=== PATIENT | male | born 1985 | race Caucasian/White ===

== ENCOUNTER 2019-10-27 16:08 | Emergency (ER) | payer SELFPAY ==
[~2019-10-27] VITALS: Ht 172.7 cm; Wt 97.6 kg
[2019-10-27 16:12] VITALS: BP 146/79
[2019-10-27] MEDS ORDERED: LIDOCAINE 1%/EPI 1:100,000 20 ML VIAL. IJ ONE (16:30)
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
== END 2019-10-27 17:00 | disposition left against medical advice (07) ==
LOC: ER 16:08
DX: S41.012A Laceration without foreign body of left shoulder, initial encounter (principal); M54.2 Cervicalgia; Z88.2 Allergy status to sulfonamides; Y00.XXXA Assault by blunt object, initial encounter; Y93.89 Activity, other specified; Y92.89 Other specified places as the place of occurrence of the external cause; Y99.8 Other external cause status
CPT/HCPCS: 12002; 70450; 72125; 73030; 99285-25

== ENCOUNTER 2020-09-12 18:00 | Emergency (ER) | payer SELFPAY ==
[~2020-09-12] VITALS: Ht 172.7 cm; Wt 100.0 kg
--- NOTE | 2020-09-12 19:11 | RAD ---
Exam: Chest one view INDICATION: OD, cough TECHNIQUE: Frontal view of the chest Comparisons: None FINDINGS: The cardiomediastinal silhouette and pulmonary vessels are within normal limits. The lung and pleural spaces are clear. IMPRESSION: No acute cardiopulmonary process. Electronically signed by: Gopi Chery MD (09/12/2020 7:09 PM) JENNY
--- NOTE | 2020-09-12 19:47 | PHYS DOC ---
Past History Past Medical History: Anxiety Past Surgical History: Tonsillectomy Alcohol Use: Occasionally Social History Narrative: FENTANYL Adult General Chief Complaint Chief Complaint: OVERDOSE HPI HPI Patient is a 35-year-old male who presents with opioid overdose. States he injected some fentanyl at home, and overdid it and passed out. States that the people that were there with him gave him an intramuscular injection of Narcan and called EMS. EMS stated they gave him intranasal fentanyl on arrival and he did have a pulse and was breathing at the time. States that he did wake up shortly after that. Patient states that he did this accidentally and denies any suicidal ideations or hallucinations. States that he was feeling well and would like to go home now. Review of Systems Review of Systems Review of systems otherwise unremarkable except noted in HPI Allergies Allergies Allergies Coded Allergies Type Severity Reaction Last Updated Verified Sulfa (Sulfonamide Antibiotics) Allergy Unknown 09/12/20 Yes Physical Exam Physical Exam Constitutional: Well developed, well nourished, no acute distress, non-toxic appearance. [] HENT: Normocephalic, atraumatic, bilateral external ears normal, oropharynx moist, no oral exudates, nose normal. [] Eyes: PERRLA, EOMI, conjunctiva normal, no discharge. [] Neck: Normal range of motion, no tenderness, supple, no stridor. [] Cardiovascular:Heart rate regular rhythm, no murmur [] Lungs & Thorax: Bilateral breath sounds clear to auscultation [] Abdomen: soft, no tenderness, no masses, no pulsatile masses. [] Skin: Warm, dry, no erythema, no rash. [] Back: No tenderness, Extremities: No tenderness, no cyanosis, no clubbing, ROM intact, no edema. [] Neurologic: Alert and oriented X 3, normal motor function, normal sensory function, able to sit, stand and walk without issue no focal deficits noted. [] Psychologic: Affect normal, judgment abnormal, mood normal. [] Current Patient Data Vital Signs Vital Signs Date Time Temp Pulse Resp B/P (MAP) Pulse Ox O2 Delivery O2 Flow Rate FiO2 09/12/20 18:34 96 09/12/20 18:30 106 18 09/12/20 18:01 98.3 170/103 (125) Room Air EKG EKG [] Radiology/Procedures Radiology/Procedures [] Heart Score C/O Chest Pain: No Risk Factors: Risk Factors: DM, Current or recent (<one month) smoker, HTN, HLP, family hi story of CAD, obesity. Risk Scores: Risk Factors: DM, Current or recent (<one month) smoker, HTN, HLP, family history of CAD, obesity. Course & Med Decision Making Course & Med Decision Making Patient is a 35-year-old male who presents after accidentally overdosing on injection fentanyl Vital signs notable for tachycardia and hypertension. Physical exam noted above. Patient alert, oriented, pleasant and cooperative. Able to take p.o. liquid and food in the emergency department. Observed in the emergency department for 2 hours without issue. Patient stated he was feeling well and was ready to be discharged home and called family. Discussed ceasing opioid use due to the obvious risks. Advised to follow-up with primary care physician in the morning to update on ED visit. Gave strict return precautions to the ED. Patient grateful, verbalized understanding and agreed with plan of discharge. [] Dragon Disclaimer Dragon Disclaimer This electronic medical record was generated, in whole or in part, using a voice recognition dictation system. Departure Departure: Impression: Primary Impression: Opioid overdose Disposition: HOME / SELF CARE / HOMELESS Condition: GOOD Referrals: PCP,NO (PCP) CHRISTINE KAPOOR MD Patient Instructions: Narcotic Overdose Additional Instructions: Please read all of the attached information very carefully. As discussed, please cease using any medications that are not prescribed to you due to the obvious risk we discussed. Please call your primary care physician first thing in the morning to update on your ED visit and set up a follow-up visit. You are given resources as well for local [facility] clinics/primary care physicians and other providers that can help you with ceasing opioid use. Please come back to the emergency department with new or concerning symptoms as discussed. ADELA ENGLISH MD Sep 12, 2020 19:47
[2020-09-12 21:00] VITALS: BP 148/70
== END 2020-09-12 21:20 | disposition home or self-care (01) ==
LOC: ER 18:00
DX: T40.2X1A Poisoning by other opioids, accidental (unintentional), initial encounter (principal); F41.9 Anxiety disorder, unspecified; Z88.2 Allergy status to sulfonamides; Y92.89 Other specified places as the place of occurrence of the external cause
CPT/HCPCS: 71045; 99285

== ENCOUNTER 2020-10-10 14:43 | Emergency (ER) | payer SELFPAY ==
[~2020-10-10] VITALS: Ht 177.8 cm; Wt 100.2 kg
[2020-10-10 15:35] LABS: BASO # 0.1 x10^3/uL (0.0-0.2); BASO % 0 % (0-3); EOS # 0.2 x10^3/uL (0.0-0.7); EOS % 1 % (0-3); HEMATOCRIT 34.7 % (39.0-53.0); HEMOGLOBIN 11.8 g/dL (13.0-17.5); LYMPH # 0.7 x10^3/uL (1.0-4.8); LYMPH % 2 % (24-48); MEAN CORPUSCULAR HEMOGLOBIN 30 pg (25-35); MEAN CORPUSCULAR HGB CONC 34 g/dL (31-37); MEAN CORPUSCULAR VOLUME 88 fL (79-100); MONO # 2.4 x10^3/uL (0.0-1.1); MONO % 7 % (0-9); NEUT % 91 % (31-73); PLATELET COUNT 30 x10^3/uL (140-400); RED BLOOD COUNT 3.96 x10^6/uL (4.30-5.70); RED CELL DISTRIBUTION WIDTH 14.1 % (11.5-14.5); WHITE BLOOD COUNT 36.4 x10^3/uL (4.0-11.0)
--- NOTE | 2020-10-10 15:44 | RAD ---
EXAM: Chest, single view. HISTORY: Shortness of breath. COMPARISON: 09/12/2020 FINDINGS: A frontal view of the chest obtained. There is diffuse mixed interstitial and alveolar infi ltrate. There are suspected trace pleural effusions. There is no pneumothorax. The heart is normal in size. IMPRESSION: Diffuse mixed interstitial and alveolar infiltrate. Follow-up to confirm resolution. Electronically signed by: Alena Ward MD (10/10/2020 3:42 PM) [id number]
[2020-10-10 15:47] LABS: BGAS PH 7.44 (7.35-7.46)
[2020-10-10 16:06] LABS: ALBUMIN 1.5 g/dL (3.4-5.0); ALBUMIN/GLOBULIN RATIO 0.3 (1.0-1.7); CALCIUM 7.6 mg/dL (8.5-10.1); CREATININE 4.5 mg/dL (0.7-1.3); TOTAL BILIRUBIN 12.2 mg/dL (0.2-1.0); TOTAL PROTEIN 5.9 g/dL (6.4-8.2)
[2020-10-10 16:25] LABS: C REACTIVE PROTEIN 239.3 mg/L (0-3.3)
--- NOTE | 2020-10-10 16:25 | EKG ---
[address] [address] Test Date: 2020-10-10 Test Time: 15:21:56 Pat Name: GULSHAN HINKLE Department: Room: Gender: M [employer] Instructor: ALLI : 1985 Requested By: AUBREY BARTON Order Number: [id number] Reading MD: Measurements Intervals Bath Rate: 115 P: -64 TX: 114 QRS: -5 QRSD: 90 T: 33 QT: 310 QTc: 431 Interpretive Statements SINUS TACHYCARDIA LEFT ATRIAL ABNORMALITY LEFTWARD AXIS ABNORMAL ECG RI6.02 No previous ECG available for comparison
--- NOTE | 2020-10-10 17:35 | PHYS DOC ---
Past History Past Medical History: Anxiety Additional Past Medical Histor: IV DURG USE Past Surgical History: Other Additional Past Surgical Histo: UNKNOWN Alcohol Use: Heavy Adult General Chief Complaint Chief Complaint: SHORTNESS OF BREATH HPI HPI Patient is a 35-year-old male who presents to the emergency room complaining of severe shortness of breath. Patient has been ill for 2 days. Patient is unable to provide very much history due to significant respiratory distress. He does state that he has been having fevers and generalized weakness. He is unsure why he has bleeding from the mouth. He is an IV drug user and last use sometime last week. Review of Systems Review of Systems Complete ROS is negative unless otherwise documented in HPI Current Medications Current Medications Current Medications Medications (Trade) Dose Ordered Sig/Jamila Start Time Stop Time Status Last Admin Dose Admin Lorazepam (Ativan Inj) 1 mg 1X ONCE 10/10/20 15:15 10/10/20 15:16 DC Allergies Allergies Allergies Coded Allergies Type Severity Reaction Last Updated Verified Sulfa (Sulfonamide Antibiotics) Allergy Unknown 09/12/20 Yes Physical Exam Physical Exam General: Awake, alert, severe distress, toxic appearing HEENT: Atraumatic, EOMI, PERRL, dry oral mucosa, blood dried on lips and tongue Neck: Supple, trachea midline Respiratory: Respiratory distress, severe tachypnea, diffuse crackles, diffuse decreased breath sounds CV: Tachycardia, no murmur, 3+ pitting edema bilateral lower extremities GI: Soft, nondistended, nontender, no masses MSK: No obvious deformities Skin: Warm, dry, intact Neuro: Speech limited, sensory and motor grossly intact, no focal deficits Psych: Anxious Current Patient Data Vital Signs Vital Signs Date Time Temp Pulse Resp B/P (MAP) Pulse Ox O2 Delivery O2 Flow Rate FiO2 10/10/20 15:42 99.2 120 30 106/65 Nasal Cannula 4.0 10/10/20 15:15 96 Lab Results Laboratory Tests Test 10/10/20 15:20 10/10/20 15:25 10/10/20 15:41 White Blood Count 36.4 x10^3/uL (4.0-11.0) H Red Blood Count 3.96 x10^6/uL (4.30-5.70) L Hemoglobin 11.8 g/dL (13.0-17.5) L Hematocrit 34.7 % (39.0-53.0) L Mean Corpuscular Volume 88 fL (79-100) Mean Corpuscular Hemoglobin 30 pg (25-35) Mean Corpuscular Hemoglobin Concent 34 g/dL (31-37) Red Cell Distribution Width 14.1 % (11.5-14.5) Platelet Count 30 x10^3/uL (140-400) L Neutrophils (%) (Auto) 91 % (31-73) H Lymphocytes (%) (Auto) 2 % (24-48) L Monocytes (%) (Auto) 7 % (0-9) Eosinophils (%) (Auto) 1 % (0-3) Basophils (%) (Auto) 0 % (0-3) Neutrophils # (Auto) 33.0 x10^3uL (1.8-7.7) H Lymphocytes # (Auto) 0.7 x10^3/uL (1.0-4.8) L Monocytes # (Auto) 2.4 x10^3/uL (0.0-1.1) H Eosinophils # (Auto) 0.2 x10^3/uL (0.0-0.7) Basophils # (Auto) 0.1 x10^3/uL (0.0-0.2) Platelet Estimate Pending Activated Partial Thromboplast Time 30 SEC (23-33) Sodium Level 119 mmol/L (136-145) *L Potassium Level 5.0 mmol/L (3.5-5.1) Chloride Level 81 mmol/L (98-107) L Carbon Dioxide Level 13 mmol/L (21-32) L Anion Gap 25 (6-14) H Blood Urea Nitrogen 180 mg/dL (8-26) H Creatinine 4.5 mg/dL (0.7-1.3) H Estimated GFR (Cockcroft-Gault) 15.0 BUN/Creatinine Ratio 40 (6-20) H Glucose Level 143 mg/dL (70-99) H Calcium Level 7.6 mg/dL (8.5-10.1) L Total Bilirubin 12.2 mg/dL (0.2-1.0) H Aspartate Amino Transferase (AST) 267 U/L (15-37) H Alanine Aminotransferase (ALT) 113 U/L (16-63) H Alkaline Phosphatase 350 U/L (46-116) H Creatine Kinase 63 U/L (39-308) Troponin I Quantitative < 0.017 ng/mL (0-0.055) C-Reactive Protein 239.3 mg/L (0-3.3) H CH-Esx-E-Type Natriuretic Peptide 4810 pg/mL (0-124) H Total Protein 5.9 g/dL (6.4-8.2) L Albumin 1.5 g/dL (3.4-5.0) L Albumin/Globulin Ratio 0.3 (1.0-1.7) L Blood pH 7.44 (7.35-7.46) Blood Gas PCO2 22 mmHg (35-46) L Blood Gas PO2 95 mmHg (80-100) Blood Gas HCO3 15 mmol/L (21-28) L Arterial Bld O2 Saturation (Calc) 98 % (92-99) FiO2 36 % Lactic Acid Level 3.4 mmol/L (0.4-2.0) H EKG EKG [] Radiology/Procedures Radiology/Procedures [] Heart Score C/O Chest Pain: N/A Risk Factors: Risk Factors: DM, Current or recent (<one month) smoker, HTN, HLP, family history of CAD, obesity. Risk Scores: Risk Factors: DM, Current or recent (<one month) smoker, HTN, HLP, family history of CAD, obesity. Course & Med Decision Making Course & Med Decision Making Pertinent Labs and Imaging studies reviewed. (See chart for details) Patient is a 35-year-old male who presents to the emergency room in respiratory distress. Patient has been having fevers and chest x-ray suggest the patient has novel coronavirus 19. Patient was placed on precautions and appropriate precautions were taken. It was very difficult to get IV access on the patient. Greater than 20 attempts were made by the nursing staff. Due to inability to get IV access and patient's critical illness a femoral central line was placed. Femoral line was placed as patient is unable to fully lie flat and is unable to tolerate anything including a sterile covering around his face. He did tolerate the femoral line without difficulty. Patient was intubated due to severe respiratory distress. Lab work is significant for renal failure, signs of liver failure, signs of heart failure. Patient was given Decadron, fluids, Zosyn. He was discussed with Dr. Zendejas at [facility] who will admit the patient to the ICU. Dragon Disclaimer Dragon Disclaimer This electronic medical record was generated, in whole or in part, using a voice recognition dictation system. Departure Departure: Impression: Primary Impression: Suspected COVID-19 virus infection Additional Impressions: Respiratory failure Hyponatremia Acute kidney failure Hepatitis IV drug abuse Disposition: 02 SHORT TERM HOSPITAL Condition: GRAVE Referrals: PCP,NO (PCP) Critical Care Note Comments Critical Care: Authorized and Performed by: Aubrey Brown MD Total critical care time: approximately 65 minutes Due to a high probability of clinically significant, life threatening det erioration, the patient required my highest level of preparedness to intervene emergently and I personally spent this critical care time directly and personally managing the patient. This critical care time included obtaining a history; examining the patient; pulse oximetry; ventilator management if necessary; ordering and review of studies; arranging urgent treatment with development of a management plan; evaluation of patient's response to treatment; frequent reassessment; discussion with patient/family; and, discussions with other providers. This critical care time was performed to assess and manage the high probability of imminent, life-threatening deterioration that could result in multi-organ failure. It was exclusive of separately billable procedures and treating other patients and teaching time. Please see MDM section and the rest of the note for further information on patient assessment and treatment. Central Line Progress Performed by: Aubrey Brown MD Consent: Verbal consent obtained. The procedure was performed in an emergent situation. Consent given by: patient and guardian Patient identity confirmed: verbally with patient and arm band Time out: Immediately prior to procedure a "time out" was called to verify the correct patient, procedure, equipment, retail support manager and site/side marked as required. Indications: vascular access and central pressure monitoring Anesthesia: local infiltration Local anesthetic: lidocaine 2% with epinephrine Anesthetic total: 8 ml Preparation: skin prepped with 2% chlorhexidine Skin prep agent dried: skin prep agent completely dried prior to procedure Sterile barriers: all five maximum sterile barriers used - cap, mask, sterile gown, sterile gloves, and large sterile sheet Hand hygiene: hand hygiene performed prior to central venous catheter insertion Location details: Right femoral Patient position: supine Catheter type: triple lumen Pre-procedure: landmarks identified Ultrasound guidance: yes Number of attempts: 2 Successful placement: yes Post-procedure: line sutured and dressing applied Assessment: blood return through all parts, free fluid flow Patient tolerance: Patient tolerated the procedure well with no immediate complications. Intubation Intubation : Post Intubation Xray: Yes Progress Intubation Performed by: Aubrey Brown MD Consent: Verbal consent not obtained. The procedure was performed in an emergent situation. Required items: required blood products, implants, devices, and special equipment available Patient identity confirmed: arm band Time out: Immediately prior to procedure a "time out" was called to verify the correct patient, procedure, equipment, retail support manager and site/side marked as req uired. Indications: respiratory failure and airway protection Intubation method: direct Patient status: paralyzed (RSI) Preoxygenation: Nasal cannula Sedatives: etomidate Paralytic: succinylcoline Laryngoscope size: Mac 3 Tube size: 7.5 mm Tube type: cuffed Number of attempts: 2 Cords visualized: yes. Large amount of thick yellow secretions mixed with blood and posterior oropharynx and vocal cords Post-procedure assessment: chest rise, BS = bilaterally none over epigastrum, +CO2 detector Breath sounds: equal and absent over the epigastrium Cuff inflated: yes Tube secured with: adhesive tape Chest x-ray interpreted by me. Chest x-ray findings: endotracheal tube in appropriate position Patient tolerance: Patient tolerated the procedure well with no immediate complications. Problem Qualifiers AUBREY BROWN MD Oct 10, 2020 5:35 pm
[2020-10-10] MEDS ORDERED: SUCCINYLCHOLINE 200 MG/10 ML VIAL. ONE (17:36)
[2020-10-10] MEDS ORDERED: IV NORMAL SALINE 1,000ML 1,000 ML IV ONE (17:45)
[2020-10-10] MEDS ORDERED: PIPERACILLIN/TAZOBACTAM 3.375 GM in IV NORMAL SALINE 50ML 50 ML IV ONE (17:45)
[2020-10-10] MEDS ORDERED: DEXAMETHASONE SOD PHOS 10 MG/ML VIAL. IVP ONE (17:45)
[2020-10-10] MEDS ORDERED: MIDAZOLAM HCL 50 MG in IV NORMAL SALINE 50ML 50 ML IV ONE (17:45)
[2020-10-10] MEDS ORDERED: PIPERACILLIN/TAZOBACTAM 3.375 GM VIAL IV ONE (17:46)
[2020-10-10] MEDS ORDERED: IV NORMAL SALINE 50ML 50 ML ONE (17:46)
[2020-10-10] MEDS ORDERED: ETOMIDATE 40 MG/20 ML VIAL. ONE (18:00)
[2020-10-10 18:06] LABS: % ATYL 1 % (0-0); % BANDS 25 % (0-9); % BASOS 1 % (0-3); % MONOS 5 % (0-10); % MYELOS 1 % (0-0); % SEGS 67 % (35-66)
[2020-10-10 18:07] LABS: PLT ESTIMATE DECREASED (ADEQUATE); TOXIC GRANULATION PRESENT
--- NOTE | 2020-10-10 18:35 | RAD ---
EXAMINATION: Chest radiograph. VIEWS: Single view COMPARISON: Same day radiograph performed at 2:57 PM INDICATION:35 years, Male, intubation. FINDINGS/ IMPRESSION: Interval endotracheal tube placement with the tip locates approximately 5.2 cm proximal t o the rasta. No other significant changes since earlier exam. Electronically signed by: Moon Johnson MD (10/10/2020 6:33 PM) [facility] [place]
[2020-10-10 19:15] VITALS: BP 95/53
[2020-10-10 19:59] LABS: CLARITY,URINE CLOUDY; COLOR,URINE AMBER
[2020-10-10 20:00] LABS: BACTERIA,URINE MOD /HPF (0-FEW); SQUAMOUS EPITHELIAL CELL,UR OCC /LPF
== END 2020-10-10 19:25 | disposition short-term general hospital (02) ==
LOC: ER 14:43
DX: U07.1 COVID-19 (principal); J96.90 Respiratory failure, unspecified, unspecified whether with hypoxia or hypercapnia; N17.9 Acute kidney failure, unspecified; E87.1 Hypo-osmolality and hyponatremia; K75.9 Inflammatory liver disease, unspecified; F41.9 Anxiety disorder, unspecified; F10.20 Alcohol dependence, uncomplicated; Z88.2 Allergy status to sulfonamides; Y90.9 Presence of alcohol in blood, level not specified
CPT/HCPCS: 31500; 36415; 36556; 51702; 71045; 80053; 81001; 82550; 82803; 83605; 83880; 84484; 85007; 85025; 85730; 86140; 87040; 87086; 93005; 94660; 96365; 96367; 96375; 99291; C9803; J1100; J2250; J2543; J7030; U0003; 94002